=== PATIENT | male | born 1955 | race Hispanic/Latino ===

== ENCOUNTER 2018-09-28 13:35 | Observation (INO) | payer OTHER ==
--- OUTSIDE RECORDS SUMMARY | 2018-09-28 13:38 | XMS REPORT | Clinical Summary ---
:1955 Author Organization [facility] Address [address] [place] [address] Care Team Providers Name Role Phone Jaimie Primary Care Provider Allergies No Known Allergies Medications Medication Sig Dispensed Refills Start Date End Date Status clopidogrel (PLAVIX) 75 0 10/03/2016 Active mg tablet carvedilol (COREG) 6.25 0 10/03/2016 Active MG tablet atorvastatin (LIPITOR) 0 07/15/2016 Active 20 MG tablet fenofibric acid, 0 10/03/2016 Active choline, 45 mg capsule furosemide (LASIX) 40 0 10/03/2016 Active MG tablet lisinopril 0 10/03/2016 Active (PRINIVIL,ZESTRIL) 10 MG tablet aspirin 81 MG EC tablet Take 81 mg by 0 Active mouth daily. pantoprazole (PROTONIX) Take 1 tablet (40 30 tablet 0 10/22/2016 Active 40 MG tablet mg total) by mouth daily. Active Problems Problem Noted Date Angina pectoris 10/21/2016 Acute chest pain 10/19/2016 Social History Tobacco Use Types Packs/Day Years Used Date Never Smoker Alcohol Use Drinks/Week oz/Week Comments Yes rarely Sex Assigned at Date Recorded Not on file Job Start Date Occupation Industry Not on file Not on file Not on file Travel History Travel Start Travel End No recent travel history available. Last Filed Vital Signs Not on file Plan of Treatment Not on file Results Not on fileafter 09/27/2017 Insurance Payer Benefit Plan / Group Subscriber ID Type Phone Address [employer] - MEDICARE MGD HU[employer] MEDICARE ADV xxxxxxxxx Maps Contracted CARE Advance Directives For more information, please contact:[address] [phone] Code Status Date Activated Date Inactivated Comments Full Code 10/19/2016 11:10 PM 10/22/2016 2:23 PM This code status was determined by: Patient
--- OUTSIDE RECORDS SUMMARY | 2018-09-28 13:38 | XMS REPORT ---
:1955 Author Organization [facility] Address [address] [place] [address] Care Team Providers Name Role Phone HIRAM UDRHAM Unavailable Unavailable Problems This patient has no known problems. Allergies, Adverse Reactions, Alerts This patient has no known allergies or adverse reactions. Medications This patient has no known medications. Results Test Description Test Time Test Comments Text Results Atomic Results Result Comments POCT-GLUCOSE METER 2016-10-22 17:02:00 Test Item Value Reference Range Comments POC-GLUCOSE METER (BEAKER) (test 83 mg/dL 70-110 TESTED AT [facility] [address] [facility] dzor=[id number]) [facility] [address] COMPREHENSIVE METABOLIC [id number] 05:27:00 Test Item Value Reference Range Comments TOTAL PROTEIN (BEAKER) 6.6 gm/dL 6.0-8.5 (test txnc=579) ALBUMIN (BEAKER) (test 3.7 g/dL 3.5-5.0 mwsn=6497) ALKALINE PHOSPHATASE 68 U/L 30-115 (BEAKER) (test xfqo=248) BILIRUBIN TOTAL (BEAKER) 0.6 mg/dL 0.1-1.3 (test auai=765) SODIUM (BEAKER) (test 139 meq/L 135-148 pmcs=129) POTASSIUM (BEAKER) (test 3.9 meq/L 3.5-5.5 vltb=010) CHLORIDE (BEAKER) (test 109 meq/L 98-106 xmxe=956) CO2 (BEAKER) (test 21 meq/L 20-31 tkyy=994) BLOOD UREA NITROGEN 18 mg/dL 10-26 (BEAKER) (test hvrt=948) CREATININE (BEAKER) (test 0.92 mg/dL 0.50-1.20 duqz=663) GLUCOSE RANDOM (BEAKER) 122 mg/dL 70-110 (test klpg=544) CALCIUM (BEAKER) (test 8.9 mg/dL 8.5-10.5 awnv=475) AST (SGOT) (BEAKER) (test 24 U/L 5-40 ewrn=957) ALT (SGPT) (BEAKER) (test 22 U/L 6-50 bdlk=888) EGFR (BEAKER) (test 84 mL/min/1.73 sq m ESTIMATED GFR IS NOT mfje=2347) ACCURATE CREATININE CLEARANCE IN PREDICTING GLOMERULAR FILTRATION RATE. ESTIMATED GFR IS NOT APPLICABLE FOR DIALYSIS PATIENTS. CBC W/PLT COUNT & AUTO [id number] 05:00:00 Test Item Value Reference Range Comments WHITE BLOOD CELL COUNT (BEAKER) (test vvre=623) 5.7 K/ L 4.0-10.0 RED BLOOD CELL COUNT (BEAKER) (test xdil=496) 5.10 M/ L 4.20-5.80 HEMOGLOBIN (BEAKER) (test grdy=869) 15.0 GM/DL 13.0-16.8 HEMATOCRIT (BEAKER) (test ilzk=111) 44.3 % 40.0-50.0 MEAN CORPUSCULAR VOLUME (BEAKER) (test nmns=156) 86.9 fL 82.0-98.0 MEAN CORPUSCULAR HEMOGLOBIN (BEAKER) (test 29.4 pg 27.0-33.0 oyzs=723) MEAN CORPUSCULAR HEMOGLOBIN CONC (BEAKER) (test 33.9 GM/DL 32.0-36.0 aewp=364) RED CELL DISTRIBUTION WIDTH (BEAKER) (test 14.7 % 12.0-15.0 skto=476) PLATELET COUNT (BEAKER) (test fuhl=738) 167 K/CU MM 150-430 MEAN PLATELET VOLUME (BEAKER) (test ssgt=728) 9.7 fL 6.5-10.5 NUCLEATED RED BLOOD CELLS (BEAKER) (test 0 /100 WBC 0-0 ixqg=264) NEUTROPHILS RELATIVE PERCENT (BEAKER) (test 68 % vkjr=620) LYMPHOCYTES RELATIVE PERCENT (BEAKER) (test 20 % fyby=808) MONOCYTES RELATIVE PERCENT (BEAKER) (test 9 % hbvj=927) EOSINOPHILS RELATIVE PERCENT (BEAKER) (test 2 % rtxl=973) BASOPHILS RELATIVE PERCENT (BEAKER) (test 1 % ogbu=271) NEUTROPHILS ABSOLUTE COUNT (BEAKER) (test 3.90 K/ L 1.80-8.00 lxrq=211) LYMPHOCYTES ABSOLUTE COUNT (BEAKER) (test 1.10 K/ L 1.48-4.50 qftt=518) MONOCYTES ABSOLUTE COUNT (BEAKER) (test 0.50 K/ L 0.00-1.30 afzb=453) EOSINOPHILS ABSOLUTE COUNT (BEAKER) (test 0.10 K/ L 0.00-0.50 eycp=556) BASOPHILS ABSOLUTE COUNT (BEAKER) (test 0.00 K/ L 0.00-0.20 wuks=869) TSH/FREE T4 IF [id number] 05:52:00 Test Item Value Reference Range Comments THYROID STIMULATING HORMONE (BEAKER) (test 2.19 uIU/mL 0.35-5.50 aehc=362) CREATINE KINASE (CK), TOTAL AND [id number] 05:39:00 Test Item Value Reference Range Comments CREATINE KINASE TOTAL (BEAKER) (test sdua=631) 53 U/L 30-300 CREATINE KINASE-MB (BEAKER) (test rrem=137) 1.1 ng/mL 0.0-4.9 CREATINE KINASE-MB INDEX (BEAKER) (test dida=897) 2.1 % CK-MB Reference Range:<5 Normal5-10 Borderline>10 AbnormalLIPID [id number] 05:34:00 Test Item Value Reference Range Comments TRIGLYCERIDES (BEAKER) (test updg=787) 167 mg/dL CHOLESTEROL (BEAKER) (test fsxt=715) 142 mg/dL HDL CHOLESTEROL (BEAKER) (test gjwq=528) 28 mg/dL LDL CHOLESTEROL CALCULATED (BEAKER) (test 81 mg/dL ceua=170) Triglyceride Reference Range: Low Risk <150 Borderline 150- 199 High Risk 200-499 Very High Risk >=500Cholesterol Reference Range: Low Risk <200 Borderline 200-239 High Risk > 240HDL Cholesterol Reference Range: Low Risk >=60 High Risk <40LDL Cholesterol Reference Range: Optimal <100 Near Optimal 100-129 Borderline 130-159 High 160-189 Very High >=190COMPREHENSIVE METABOLIC [id number] 05:34:00 Test Item Value Reference Range Comments TOTAL PROTEIN (BEAKER) 7.0 gm/dL 6.0-8.5 (test fsuv=563) ALBUMIN (BEAKER) (test 4.0 g/dL 3.5-5.0 yxkj=0955) ALKALINE PHOSPHATASE 64 U/L 30-115 (BEAKER) (test bdkr=329) BILIRUBIN TOTAL (BEAKER) 0.8 mg/dL 0.1-1.3 (test yxcu=868) SODIUM (BEAKER) (test 138 meq/L 135-148 lqih=552) POTASSIUM (BEAKER) (test 3.9 meq/L 3.5-5.5 rkdx=274) CHLORIDE (BEAKER) (test 107 meq/L 98-106 koal=560) CO2 (BEAKER) (test 22 meq/L 20-31 rhiv=357) BLOOD UREA NITROGEN 17 mg/dL 10-26 (BEAKER) (test mydy=554) CREATININE (BEAKER) (test 0.91 mg/dL 0.50-1.20 cozj=636) GLUCOSE RANDOM (BEAKER) 103 mg/dL 70-110 (test mmtv=302) CALCIUM (BEAKER) (test 9.3 mg/dL 8.5-10.5 vzuf=799) AST (SGOT) (BEAKER) (test 24 U/L 5-40 vlje=219) ALT (SGPT) (BEAKER) (test 22 U/L 6-50 absa=981) EGFR (BEAKER) (test 85 mL/min/1.73 sq m ESTIMATED GFR IS NOT sgnk=7501) ACCURATE CREATININE CLEARANCE IN PREDICTING GLOMERULAR FILTRATION RATE. ESTIMATED GFR IS NOT APPLICABLE FOR DIALYSIS PATIENTS. CBC W/PLT COUNT & AUTO [id number] 05:09:00 Test Item Value Reference Range Comments WHITE BLOOD CELL COUNT (BEAKER) (test giyz=729) 5.7 K/ L 4.0-10.0 RED BLOOD CELL COUNT (BEAKER) (test nkuh=836) 5.27 M/ L 4.20-5.80 HEMOGLOBIN (BEAKER) (test tvxi=991) 15.3 GM/DL 13.0-16.8 HEMATOCRIT (BEAKER) (test ahhx=024) 46.3 % 40.0-50.0 MEAN CORPUSCULAR VOLUME (BEAKER) (test jrjb=676) 88.0 fL 82.0-98.0 MEAN CORPUSCULAR HEMOGLOBIN (BEAKER) (test 29.1 pg 27.0-33.0 ulgi=254) MEAN CORPUSCULAR HEMOGLOBIN CONC (BEAKER) (test 33.1 GM/DL 32.0-36.0 rlmj=501) RED CELL DISTRIBUTION WIDTH (BEAKER) (test 14.8 % 12.0-15.0 sths=741) PLATELET COUNT (BEAKER) (test hyaw=982) 171 K/CU MM 150-430 MEAN PLATELET VOLUME (BEAKER) (test zuuu=490) 9.6 fL 6.5-10.5 NUCLEATED RED BLOOD CELLS (BEAKER) (test 0 /100 WBC 0-0 eujq=732) NEUTROPHILS RELATIVE PERCENT (BEAKER) (test 62 % raul=363) LYMPHOCYTES RELATIVE PERCENT (BEAKER) (test 24 % oczk=701) MONOCYTES RELATIVE PERCENT (BEAKER) (test 10 % qkmm=025) EOSINOPHILS RELATIVE PERCENT (BEAKER) (test 3 % kyhu=132) BASOPHILS RELATIVE PERCENT (BEAKER) (test 1 % yrwa=111) NEUTROPHILS ABSOLUTE COUNT (BEAKER) (test 3.50 K/ L 1.80-8.00 ernc=553) LYMPHOCYTES ABSOLUTE COUNT (BEAKER) (test 1.40 K/ L 1.48-4.50 tpoy=499) MONOCYTES ABSOLUTE COUNT (BEAKER) (test 0.60 K/ L 0.00-1.30 fasg=076) EOSINOPHILS ABSOLUTE COUNT (BEAKER) (test 0.20 K/ L 0.00-0.50 ntgf=618) BASOPHILS ABSOLUTE COUNT (BEAKER) (test 0.10 K/ L 0.00-0.20 yhfd=625) CREATINE KINASE (CK), TOTAL AND [id number] 13:10:00 Test Item Value Reference Range Comments CREATINE KINASE TOTAL (BEAKER) (test spzp=174) 56 U/L 30-300 CREATINE KINASE-MB (BEAKER) (test dmgh=177) 1.1 ng/mL 0.0-4.9 CREATINE KINASE-MB INDEX (BEAKER) (test ngwf=830) 2.0 % CK-MB Reference Range:<5 Normal5-10 Borderline>10 AbnormalTROPONIN [id number] 13:10:00 Test Item Value Reference Range Comments TROPONIN I (BEAKER) (test mbus=008) 0.01 ng/mL 0.00-0.15 Troponin I (TnI) levels must be interpreted in the context of the presenting symptoms and the clinical findings. Elevated TnI levels indicate myocardial damage, but are not specific for ischemic heart disease. Elevated TnI levels are seen in patients with other cardiac conditions (including myocarditis and congestive heart failure), and slight TnI elevations occur in patients with other conditions, including sepsis, renal failure, acidosis, acute neurological disease, and persistent tachyarrhythmia.CREATINE KINASE (CK), TOTAL AND [id number] 05:13:00 Test Item Value Reference Range Comments CREATINE KINASE TOTAL (BEAKER) (test hsjj=655) 51 U/L 30-300 CREATINE KINASE-MB (BEAKER) (test fthm=919) 0.9 ng/mL 0.0-4.9 CREATINE KINASE-MB INDEX (BEAKER) (test nifw=750) 1.8 % CK-MB Reference Range:<5 Normal5-10 Borderline>10 AbnormalTROPONIN [id number] 05:13:00 Test Item Value Reference Range Comments TROPONIN I (BEAKER) (test wcax=468) 0.01 ng/mL 0.00-0.15 Troponin I (TnI) levels must be interpreted in the context of the presenting symptoms and the clinical findings. Elevated TnI levels indicate myocardial damage, but are not specific for ischemic heart disease. Elevated TnI levels are seen in patients with other cardiac conditions (including myocarditis and congestive heart failure), and slight TnI elevations occur in patients with other conditions, including sepsis, renal failure, acidosis, acute neurological disease, and persistent tachyarrhythmia.CREATINE KINASE (CK), TOTAL AND [id number] 20:46:00 Test Item Value Reference Range Comments CREATINE KINASE TOTAL (BEAKER) (test kvno=012) 64 U/L 30-300 CREATINE KINASE-MB (BEAKER) (test jhxq=954) 1.0 ng/mL 0.0-4.9 CREATINE KINASE-MB INDEX (BEAKER) (test xbku=826) 1.6 % CK-MB Reference Range:<5 Normal5-10 Borderline>10 AbnormalTROPONIN [id number] 20:46:00 Test Item Value Reference Range Comments TROPONIN I (BEAKER) (test bqyp=580) < ng/mL 0.00-0.15 Troponin I (TnI) levels must be interpreted in the context of the presenting symptoms and the clinical findings. Elevated TnI levels indicate myocardial damage, but are not specific for ischemic heart disease. Elevated TnI levels are seen in patients with other cardiac conditions (including myocarditis and congestive heart failure), and slight TnI elevations occur in patients with other conditions, including sepsis, renal failure, acidosis, acute neurological disease, and persistent tachyarrhythmia.B-TYPE NATRIURETIC FACTOR (BNP) 20:43:00 Test Item Value Reference Range Comments B-TYPE NATRIURETIC PEPTIDE (BEAKER) (test iasn=459) 19 pg/mL 0-100 [id number] 20:35:00 Test Item Value Reference Range Comments LIPASE (BEAKER) (test vxjt=230) 22 U/L 8-78 COMPREHENSIVE METABOLIC [id number] 20:35:00 Test Item Value Reference Range Comments TOTAL PROTEIN (BEAKER) 7.5 gm/dL 6.0-8.5 Specimen slightly (test rqlm=857) hemolyzed ALBUMIN (BEAKER) (test 4.2 g/dL 3.5-5.0 Specimen slightly asry=3287) hemolyzed ALKALINE PHOSPHATASE 85 U/L 30-115 (BEAKER) (test lbuj=210) BILIRUBIN TOTAL (BEAKER) 0.8 mg/dL 0.1-1.3 Specimen slightly (test qjjk=889) hemolyzed SODIUM (BEAKER) (test 135 meq/L 135-148 hfev=774) POTASSIUM (BEAKER) (test 4.4 meq/L 3.5-5.5 Specimen slightly kjvq=776) hemolyzed CHLORIDE (BEAKER) (test 104 meq/L 98-106 vcuv=792) CO2 (BEAKER) (test 20 meq/L 20-31 bcvc=609) BLOOD UREA NITROGEN 21 mg/dL 10-26 (BEAKER) (test whne=824) CREATININE (BEAKER) (test 0.91 mg/dL 0.50-1.20 Specimen slightly vxgp=479) hemolyzed GLUCOSE RANDOM (BEAKER) 89 mg/dL 70-110 (test nakj=219) CALCIUM (BEAKER) (test 9.7 mg/dL 8.5-10.5 ovkc=696) AST (SGOT) (BEAKER) (test 33 U/L 5-40 Specimen slightly bcep=923) hemolyzed ALT (SGPT) (BEAKER) (test 25 U/L 6-50 Specimen slightly svvp=458) hemolyzed EGFR (BEAKER) (test 85 mL/min/1.73 sq m ESTIMATED GFR IS NOT fvor=5923) ACCURATE CREATININE CLEARANCE IN PREDICTING GLOMERULAR FILTRATION RATE. ESTIMATED GFR IS NOT APPLICABLE FOR DIALYSIS PATIENTS. CBC W/PLT COUNT & AUTO [id number] 20:08:00 Test Item Value Reference Range Comments WHITE BLOOD CELL COUNT (BEAKER) (test luti=657) 5.7 K/ L 4.0-10.0 RED BLOOD CELL COUNT (BEAKER) (test krtc=563) 5.43 M/ L 4.20-5.80 HEMOGLOBIN (BEAKER) (test hgxy=563) 16.1 GM/DL 13.0-16.8 HEMATOCRIT (BEAKER) (test zpid=585) 47.3 % 40.0-50.0 MEAN CORPUSCULAR VOLUME (BEAKER) (test twse=444) 87.2 fL 82.0-98.0 MEAN CORPUSCULAR HEMOGLOBIN (BEAKER) (test 29.6 pg 27.0-33.0 nzlk=926) MEAN CORPUSCULAR HEMOGLOBIN CONC (BEAKER) (test 34.0 GM/DL 32.0-36.0 fulh=566) RED CELL DISTRIBUTION WIDTH (BEAKER) (test 14.6 % 12.0-15.0 rrny=175) PLATELET COUNT (BEAKER) (test qugr=694) 138 K/CU MM 150-430 MEAN PLATELET VOLUME (BEAKER) (test lvpf=189) 9.7 fL 6.5-10.5 NUCLEATED RED BLOOD CELLS (BEAKER) (test 0 /100 WBC 0-0 gjfi=155) NEUTROPHILS RELATIVE PERCENT (BEAKER) (test 56 % qesi=835) LYMPHOCYTES RELATIVE PERCENT (BEAKER) (test 28 % iidn=003) MONOCYTES RELATIVE PERCENT (BEAKER) (test 12 % lwoh=786) EOSINOPHILS RELATIVE PERCENT (BEAKER) (test 4 % yior=587) BASOPHILS RELATIVE PERCENT (BEAKER) (test 1 % achy=216) NEUTROPHILS ABSOLUTE COUNT (BEAKER) (test 3.20 K/ L 1.80-8.00 cyxi=572) LYMPHOCYTES ABSOLUTE COUNT (BEAKER) (test 1.60 K/ L 1.48-4.50 gbao=213) MONOCYTES ABSOLUTE COUNT (BEAKER) (test 0.70 K/ L 0.00-1.30 fkou=675) EOSINOPHILS ABSOLUTE COUNT (BEAKER) (test 0.20 K/ L 0.00-0.50 bnjp=609) BASOPHILS ABSOLUTE COUNT (BEAKER) (test 0.00 K/ L 0.00-0.20 cris=516)
[2018-09-28] MEDS ORDERED: ASPIRIN 81 MG CHEWABLE TABLET ONE (14:16)
[2018-09-28] MEDS ORDERED: ENOXAPARIN 100 MG/ML SYR SQ ONE (14:17)
[2018-09-28 14:19] LABS: Absolute Lymphocytes (CBC) 1.8 K/uL (0.7-4.9); Absolute Monocytes 0.4 K/uL (0.1-1.3); Absolute Neutrophil 3.8 K/uL (1.8-8.0); Basophils % 0.9 % (0-1.3); Eosinophils % 3.2 % (0-4.4); Hematocrit 46.8 % (39.6-49.0); Lymphocytes % 28.7 % (15.3-44.8); MPV 9.4 fL (7.6-11.3); Monocytes % 6.4 % (3.3-12.3)
--- NOTE | 2018-09-28 14:23 | RAD REPORT ---
EXAM DESCRIPTION: RAD - Chest Single View - 09/28/2018 2:15 pm CLINICAL HISTORY: CHEST PAIN Chest pain. COMPARISON: No comparisons FINDINGS: Portable technique limits examination quality. Mild interstitial pulmonary edema is seen. The heart is moderately enlarged in size with a dual lead pacer device present. No displaced fractures. IMPRESSION: Mild CHF versus volume overload pattern.
[2018-09-28 14:38] LABS: ALT/SGPT 45 U/L (12-78); AST/SGOT 32 U/L (15-37); Albumin 3.9 g/dL (3.4-5.0); Alkaline Phosphatase 108 U/L (45-117); BUN Blood Urea Nitrogen 15 mg/dL (7-18); Bicarbonate 25 mmol/L (21-32); Bilirubin Direct 0.3 mg/dL (0-0.2); Bilirubin Total 1.1 mg/dL (0.2-1.0); Glucose Level 148 mg/dL (74-106); Magnesium 2.1 mg/dL (1.8-2.4); NT PRO-BNP 209 pg/mL (<125); Potassium 3.9 mmol/L (3.5-5.1); Protein, Total 7.7 g/dL (6.4-8.2); Sodium Level 139 mmol/L (136-145); Troponin (Emerg Dept Use Only) < 0.02 ng/mL (0.0-0.045)
[2018-09-28 14:43] LABS: Protime INR 1.08
--- NOTE | 2018-09-28 14:49 | EDPHYS ---
Physician Documentation [facility] Name: Prasad García Age: 63 yrs Sex: Male : 1955 Arrival Date: 09/28/2018 Time: 13:36 Bed 18 Private MD: ED Physician Brian Anaya HPI: 09/28 14:44 This 63 yrs old Male presents to ER via Ambulatory with complaints of Chest aliya Pain. 14:44 The patient or guardian reports chest pain that is located primarily in the substernal aliya area. Onset: this morning. The pain does not radiate. Associated signs and symptoms: Pertinent positives: shortness of breath. The chest pain is described as a heaviness. Duration: The patient or guardian reports a single episode, that is now resolved. Modifying factors: The symptoms are alleviated by NTG, X1. the symptoms are aggravated by nothing. Severity of pain: At its worst the pain was mild moderate in the emergency department the pain has resolved and did so just prior to arrival. The patient has experienced similar episodes in the past, several times. Historical: - Allergies: 13:40 No Known Allergies; hb - Home Meds: 13:42 lisinopril 10 mg Oral tab 1 tab once daily [Active]; clopidogrel 75 mg oral tab 1 tab hb once daily [Active]; furosemide 40 mg Oral tab 1 tab once daily [Active]; Potassium Chloride Oral [Active]; carvedilol 6.25 mg oral tab 1 tab 2 times per day [Active]; atorvastatin 40 mg oral tab 1 tab once daily [Active]; aspirin 81 mg Oral chew 1 tab once daily [Active]; - PMHx: 13:40 CHF; Migraines; Pacemaker; hb - PSHx: 13:40 heart stents x 2; hb - Immunization history:: Adult Immunizations up to date. - Social history:: Smoking status: Patient/guardian denies using tobacco. - Ebola Screening: : No symptoms or risks identified at this time. - Family history:: not pertinent. ROS: 14:44 Constitutional: Negative for fever, chills, and weight loss, Eyes: Negative for injury, aliya pain, redness, and discharge, ENT: Negative for injury, pain, and discharge, Neck: Negative for injury, pain, and swelling, Abdomen/GI: Negative for abdominal pain, nausea, vomiting, diarrhea, and constipation, Back: Negative for injury and pain, : Negative for injury, bleeding, discharge, and swelling, MS/Extremity: Negative for injury and deformity, Skin: Negative for injury, rash, and discoloration, Neuro: Negative for headache, weakness, numbness, tingling, and seizure, Psych: Negative for depression, anxiety, suicide ideation, homicidal ideation, and hallucinations, Allergy/Immunology: Negative for hives, rash, and allergies, Endocrine: Negative for neck swelling, polydipsia, polyuria, polyphagia, and marked weight changes, Hematologic/Lymphatic: Negative for swollen nodes, abnormal bleeding, and unusual bruising. 14:44 Cardiovascular: Positive for chest pain. 14:44 Respiratory: Positive for dyspnea on exertion, shortness of breath, at rest. Exam: 14:44 Constitutional: This is a well developed, well nourished patient who is awake, alert, aliya and in no acute distress. Head/Face: Normocephalic, atraumatic. Eyes: Pupils equal round and reactive to light, extra-ocular motions intact. Lids and lashes normal. Conjunctiva and sclera are non-icteric and not injected. Cornea within normal limits. Periorbital areas with no swelling, redness, or edema. ENT: Nares patent. No nasal discharge, no septal abnormalities noted. Tympanic membranes are normal and external auditory canals are clear. Oropharynx with no redness, swelling, or masses, exudates, or evidence of obstruction, uvula midline. Mucous membranes moist. Neck: Trachea midline, no thyromegaly or masses palpated, and no cervical lymphadenopathy. Supple, full range of motion without nuchal rigidity, or vertebral point tenderness. No Meningismus. Chest/axilla: Normal chest wall appearance and motion. Nontender with no deformity. No lesions are appreciated. Cardiovascular: Regular rate and rhythm with a normal S1 and S2. No gallops, murmurs, or rubs. Normal PMI, no JVD. No pulse deficits. Respiratory: Lungs have equal breath sounds bilaterally, clear to auscultation and percussion. No rales, rhonchi or wheezes noted. No increased work of breathing, no retractions or nasal flaring. Abdomen/GI: Soft, non-tender, with normal bowel sounds. No distension or tympany. No guarding or rebound. No evidence of tenderness throughout. Back: No spinal tenderness. No costovertebral tenderness. Full range of motion. Male : Normal genitalia with no discharge or lesions. Skin: Warm, dry with normal turgor. Normal color with no rashes, no lesions, and no evidence of cellulitis. MS/ Extremity: Pulses equal, no cyanosis. Neurovascular intact. Full, normal range of motion. Neuro: Awake and alert, GCS 15, oriented to person, place, time, and situation. Cranial nerves II-XII grossly intact. Motor strength 5/5 in all extremities. Sensory grossly intact. Cerebellar exam normal. Normal gait. Psych: Awake, alert, with orientation to person, place and time. Behavior, mood, and affect are within normal limits. 14:44 Musculoskeletal/extremity: DVT Exam: No signs of deep vein thrombosis. no pain, no aliya swelling, no tenderness, negative Homans' sign noted on exam, no appreciated bluish discoloration, no erythema, no increased warmth. Vital Signs: 13:40 BP 147 / 79; Pulse 76; Resp 18; Temp 97.5; Pulse Ox 95% on R/A; Pain 4/10; hb 14:01 Weight 116.57 kg (R); tw2 14:37 BP 106 / 66; Pulse 73; Resp 16; Pulse Ox 96% on 2 lpm NC; tw2 15:33 BP 111 / 62; Pulse 79; Resp 14; Pulse Ox 97% on 2 lpm NC; tw2 16:24 BP 130 / 76; Pulse 76; Resp 22; Pulse Ox 96% on 2 lpm NC; tw2 MDM: 13:52 Patient medically screened. aliya 09/28 13:50 Order name: Basic Metabolic Panel; Complete Time: 14:49 bd 09/28 13:50 Order name: CBC with Diff; Complete Time: 14:34 bd 09/28 13:50 Order name: LFT's; Complete Time: 14:49 bd 09/28 13:50 Order name: Magnesium; Complete Time: 14:49 bd 09/28 13:50 Order name: NT PRO-BNP; Complete Time: 14:49 09/28 13:50 Order name: PT-INR; Complete Time: 14:49 09/28 13:50 Order name: Troponin (emerg Dept Use Only); Complete Time: 14:49 bd 09/28 13:50 Order name: XRAY Chest (1 view); Complete Time: 14:34 09/28 13:58 Order name: Lipase [facility] 09/28 14:00 Order name: Urine Culture [facility] 09/28 14:58 Order name: Urine Dipstick--Ancillary (enter results) 09/28 13:47 Order name: EKG; Complete Time: 13:48 09/28 13:47 Order name: EKG - Nurse/Tech; Complete Time: 14:03 09/28 13:50 Order name: EKG; Complete Time: 13:52 09/28 13:50 Order name: Cardiac monitoring; Complete Time: 14:00 09/28 13:50 Order name: EKG - Nurse/Tech; Complete Time: 14:00 09/28 13:50 Order name: IV Saline Lock; Complete Time: 14:00 09/28 13:50 Order name: Labs collected and sent; Complete Time: 14:00 09/28 13:50 Order name: O2 Per Protocol; Complete Time: 14:00 09/28 13:50 Order name: O2 Sat Monitoring; Complete Time: 14:00 09/28 14:00 Order name: Urine Dipstick-Ancillary (obtain specimen); Complete Time: 15:27 [facility] Administered Medications: 14:07 Drug: Lovenox 1 mg/kg {Note: [address] Anaya.} Route: Sub-Q; Site: right lower tw2 abdomen; 14:56 Follow up: Response: No adverse reaction tw2 14:09 Drug: Aspirin 81 mg Route: PO; tw2 14:56 Follow up: Response: No adverse reaction tw2 14:50 Drug: Lasix 40 mg Route: IVP; Site: right forearm; tw2 15:10 Follow up: Response: No adverse reaction tw2 Disposition: 09/28/18 14:48 Hospitalization ordered by Hernandez Francois for Observation. Preliminary diagnosis are Dyspnea, Unspecified combined systolic (congestive) and diastolic (congestive) heart failure, Chest pain, unspecified, Obesity, unspecified. - Bed requested for Telemetry/MedSurg (observation). - Status is Observation. tw2 - Condition is Fair. - Problem is new. - Symptoms have improved. UTI on Admission? No Signatures: Dispatcher [employer] EDMS Aurelia Mustafa Diana, RN RN Brian Jamil MD MD cha Smirch, Shelby, RN RN Rain Riley, RIGO SIERRA Alsyon Alford RN RN tw2 Corrections: (The following items were deleted from the chart) 15:03 14:39 EC Echo M-Mode 2D Only+ECHO.RAD.BRZ ordered. EDNY EDMS 15:49 14:48 Hospitalization Ordered by Hernandez Francois DO for Observation. Preliminary dw diagnosis is Dyspnea; Unspecified combined systolic (congestive) and diastolic (congestive) heart failure; Chest pain, unspecified; Obesity, unspecified. Bed requested for Telemetry/MedSurg (observation). Status is Observation. Condition is Fair. Problem is new. Symptoms have improved. UTI on Admission? No. [facility] 16:43 15:49 09/28/2018 14:48 Hospitalization Ordered by Hernandez Francois DO for Observation. tw2 Preliminary diagnosis is Dyspnea; Unspecified combined systolic (congestive) and diastolic (congestive) heart failure; Chest pain, unspecified; Obesity, unspecified. Bed requested for Telemetry/MedSurg (observation). Status is Observation. Condition is Fair. Problem is new. Symptoms have improved. UTI on Admission? No. dw
--- NOTE | 2018-09-28 14:49 | ER ---
Nurse's Notes [facility] Name: Prasad García Age: 63 yrs Sex: Male : 1955 Arrival Date: 09/28/2018 Time: 13:36 Bed 18 Private MD: Diagnosis: Dyspnea;Unspecified combined systolic (congestive) and diastolic (congestive) heart failure;Chest pain, unspecified;Obesity, unspecified Presentation: 09/28 13:38 Presenting complaint: Substernal chest pain that radiates to left upper chest, pain is hb described as pressure, temporarily relieved by nitro x 2. Also c/o SOB and nausea. Transition of care: patient was not received from another setting of care. Onset of symptoms was September 28, 2018. Risk Assessment: Do you want to hurt yourself or someone else? Patient reports no desire to harm self or others. Initial Sepsis Screen: Does the patient meet any 2 criteria?. Care prior to arrival: Medication(s) given: Nitroglycerin, 0.4 mg SL x 2. 13:38 Method Of Arrival: Ambulatory hb 13:38 Acuity: PADMA 3 hb 14:03 Initial Sepsis Screen: Does the patient have a suspected source of infection? No. tw2 Patient's initial sepsis screen is negative. Historical: - Allergies: 13:40 No Known Allergies; hb - Home Meds: 13:42 lisinopril 10 mg Oral tab 1 tab once daily [Active]; clopidogrel 75 mg oral tab 1 tab hb once daily [Active]; furosemide 40 mg Oral tab 1 tab once daily [Active]; Potassium Chloride Oral [Active]; carvedilol 6.25 mg oral tab 1 tab 2 times per day [Active]; atorvastatin 40 mg oral tab 1 tab once daily [Active]; aspirin 81 mg Oral chew 1 tab once daily [Active]; - PMHx: 13:40 CHF; Migraines; Pacemaker; hb - PSHx: 13:40 heart stents x 2; hb - Immunization history:: Adult Immunizations up to date. - Social history:: Smoking status: Patient/guardian denies using tobacco. - Ebola Screening: : No symptoms or risks identified at this time. - Family history:: not pertinent. Screenin:59 Abuse screen: Denies threats or abuse. Nutritional screening: No deficits noted. tw2 Tuberculosis screening: No symptoms or risk factors identified. Fall Risk None identified. Assessment: 13:57 General: Appears in no apparent distress. obese, Behavior is calm, cooperative, tw2 appropriate for age. Pain: Complains of pain in chest Pain radiates to back Pain began 4 hours ago. Neuro: Level of Consciousness is awake, alert, obeys commands, Oriented to person, place, time, situation. Cardiovascular: Reports chest pain, shortness of breath, Heart tones S1 S2 Patient's skin is warm and dry. Respiratory: Airway is patent Respiratory effort is even, labored, pt is pausing between words to breathe, placed on o2 via 2L nc at this time. Respiratory pattern is regular, symmetrical, Breath sounds are clear bilaterally. GI: Abdomen is round non-distended, obese, Bowel sounds present X 4 quads. : No signs and/or symptoms were reported regarding the genitourinary system. EENT: No signs and/or symptoms were reported regarding the EENT system. Derm: No signs and/or symptoms reported regarding the dermatologic system. Musculoskeletal: Range of motion: intact in all extremities. 14:37 Reassessment: Patient appears in no apparent distress at this time. No changes from tw2 previously documented assessment. Patient and/or family updated on plan of care and expected duration. Pain level reassessed. Patient is alert, oriented x 3, equal unlabored respirations, skin warm/dry/pink. 15:34 Reassessment: Patient appears in no apparent distress at this time. No changes from tw2 previously documented assessment. Patient and/or family updated on plan of care and expected duration. Pain level reassessed. Patient is alert, oriented x 3, equal unlabored respirations, skin warm/dry/pink. 16:25 Reassessment: Patient appears in no apparent distress at this time. No changes from tw2 previously documented assessment. Patient and/or family updated on plan of care and expected duration. Pain level reassessed. Patient is alert, oriented x 3, equal unlabored respirations, skin warm/dry/pink. Vital Signs: 13:40 BP 147 / 79; Pulse 76; Resp 18; Temp 97.5; Pulse Ox 95% on R/A; Pain 4/10; hb 14:01 Weight 116.57 kg (R); tw2 14:37 BP 106 / 66; Pulse 73; Resp 16; Pulse Ox 96% on 2 lpm NC; tw2 15:33 BP 111 / 62; Pulse 79; Resp 14; Pulse Ox 97% on 2 lpm NC; tw2 16:24 BP 130 / 76; Pulse 76; Resp 22; Pulse Ox 96% on 2 lpm NC; tw2 ED Course: 13:36 Patient arrived in ED. rg4 13:39 Triage completed. hb 13:40 Arm band placed on. hb 13:52 Brian Anaya MD is Attending Physician. aliya 13:56 Alyson Alford, RN is Primary Nurse. tw2 13:57 Placed in gown. Bed in low position. Adult w/ patient. clinical research monitor on. Pulse ox on. tw2 NIBP on. 13:57 Inserted saline lock: 22 gauge in right forearm, using aseptic technique. Blood tw2 collected. Patient maintains SpO2 saturation greater than 95% on room air. 14:18 XRAY Chest (1 view) In Process Unspecified. EDMS 14:28 EKG done, by helicopter technician. reviewed by Brian Anaya MD. 3 14:46 Hernandez Francois DO is Hospitalizing Provider[facility] 16:25 No provider procedures requiring assistance completed. Patient admitted, IV remains in tw2 place. Administered Medications: 14:07 Drug: Lovenox 1 mg/kg {Note: [address] Anaya.} Route: Sub-Q; Site: right lower tw2 abdomen; 14:56 Follow up: Response: No adverse reaction tw2 14:09 Drug: Aspirin 81 mg Route: PO; tw2 14:56 Follow up: Response: No adverse reaction tw2 14:50 Drug: Lasix 40 mg Route: IVP; Site: right forearm; tw2 15:10 Follow up: Response: No adverse reaction tw2 Output: 16:00 Urine: 1100ml (Voided); Total: 1100ml. tw2 Outcome: 14:48 Decision to Hospitalize by Provider. aliya 16:25 Admitted to Med/surg accompanied by tech, via wheelchair, room 408, with oxygen, with tw2 chart, Report called to RIGO Cassidy 16:25 Condition: stable 16:25 Instructed on the need for admit. 16:43 Patient left the ED. tw2 Signatures: Dispatcher [employer] EDWY Brian Anaay MD MD [facility] Rain Riley RN RN Alyson Alford RN RN tw2 Liilane Mccauley rg4 Citlalli Rocha sm3
[2018-09-28] MEDS ORDERED: FUROSEMIDE 40 MG/4 ML VIAL ONE (14:50)
[2018-09-28 15:14] LABS: Urine Blood NEGATIVE (NEG); Urine Glucose NEGATIVE (NEG); Urine Protein NEGATIVE (NEG); Urine Specific Gravity 1.015 (1.005-1.030); Urine pH 6.5 (5.0-7.0)
--- NOTE | 2018-09-28 16:08 | P.HP ---
Certification for Inpatient Patient admitted to: Observation With expected LOS: <2 Midnights Patient will require the following post-hospital care: None Practitioner: I am a practitioner with admitting privileges, knowledge of patient current condition, hospital course, and medical plan of care. Services: Services provided to patient in accordance with Admission requirements found in Title 42 Section 412.3 of the Code of Federal Regulations Patient History Date of Service: 09/28/18 Primary Care Provider: [place], [place] (Cardiology-Dr. Ness) Reason for admission: Chest pain, shortness of breath History of Present Illness: 63-year-old male presented to the emergency room with chest pain and shortness of breath. Patient reports increasing chest pain to the center region. It radiates to the left side. He reports some nausea but no vomiting. It is associated with some shortness of breath. Mild edema to the lower extremities noted. Patient last saw Cardiology in the [place], [place] in August. He had a echocardiogram and stress test at that time. He reports both within normal range. Patient continued to have chest pain. Patient came in for further evaluation. In the ER a EKG showed no significant ST changes. Troponin less than 0.02. White count 6.2, hemoglobin 16. Sodium 139, potassium 3.9, creatinine within normal range. Glucose 148. BMP at 209. Chest x-ray showed mild CHF. Patient admitted for treatment. I saw the patient the ER, patient reported some improvement with IV Lasix given in the emergency room. Patient reports he is not on a fluid restriction. Patient reports history of pacemaker placement, CHF, CAD, hypertension and hyperlipidemia. Patient reports history of cardiac stents placed about 2 years ago. Home medications list reviewed: Yes - Past Medical/Surgical History Diabetic: No -: Pacemaker -: CHF -: CAD with history of cardiac stents -: Hypertension -: Hyperlipidemia -: Obesity -: Pacemaker placement -: Cardiac stents Psychosocial/ Personal History: Patient is . He has 4 children. He is currently disabled. - Family History Brother -: Heart disease - Social History Smoking Status: Never smoker Alcohol use: Yes CD- Drugs: No Caffeine use: Yes Place of Residence: Home Review of Systems General: As per HPI Eyes: Unremarkable ENT: Unremarkable Respiratory: Shortness of Breath, As per HPI Cardiovascular: Chest Pain, Edema, As per HPI Gastrointestinal: Nausea, As per HPI Genitourinary: Unremarkable Musculoskeletal: Pedal edema, As per HPI Integumentary: Unremarkable Neurological: Unremarkable Lymphatics: Unremarkable Physical Examination - Physical Exam General: Alert, In no apparent distress, Oriented x3, Cooperative HEENT: Atraumatic, Normocephalic, PERRLA, Mucous membr. moist/pink Neck: Supple Respiratory: Diminished (Slightly diminished to the low bases.) Cardiovascular: Normal pulses, Regular rate/rhythm Gastrointestinal: Normal bowel sounds, Soft and benign, Non-distended, No tenderness, No masses, No rebound, No guarding Musculoskeletal: No contractures, No erythema, No tenderness, No warmth Integumentary: No tenderness/swelling, No erythema, No warmth, No cyanosis Neurological: Normal speech, Normal strength at 5/5 x4 extr, Normal tone, Normal affect - Studies Laboratory Data (last 24 hrs) 09/28/18 13:50: Lipase 170 09/28/18 13:50: PT 12.7 H, INR 1.08 09/28/18 13:50: WBC 6.2, Hgb 16.0, Hct 46.8, Plt Count 221 09/28/18 13:50: Sodium 139, Potassium 3.9, BUN 15, Creatinine 0.84, Glucose 148 H, Magnesium 2.1, Total Bilirubin 1.1 H, AST 32, ALT 45, Alkaline Phosphatase 108 Assessment and Plan - Plan Impression: Chest pain with shortness of breath likely related to acute on chronic systolic CHF CAD with prior cardiac stents Hypertension Hyperlipidemia History of pacemaker placement Obesity Alcohol use Suspect underlying obstructive sleep apnea Plan: Chest pain with shortness of breath likely related to acute on chronic systolic CHF: Patient will be admitted for further evaluation. Will continue with IV Lasix. Will teach on 1500 cc per day fluid restriction and low-salt diet. 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 Cardiology consulted to further evaluate. Await further recommendations. CAD with prior cardiac stents: Will monitor cardiac enzymes and telemetry. Continue with home medication. Including aspirin. Hypertension: Restart home medication of lisinopril and carvedilol. Hyperlipidemia: Restart home medication of Lipitor. History of pacemaker placement: Will monitor closely. Pacemaker recently evaluated by Cardiology Obesity: Will calculate BMI. Will address lifestyle modification education. Alcohol use: Will address lifestyle modification education. Suspect underlying obstructive sleep apnea: Patient should have sleep study done as an outpatient to further evaluate. Discharge Plan: Home Plan to discharge in: 24 Hours - Advance Directives Does patient have a Living Will: No Does patient have a Durable POA for Healthcare: No - Code Status/Comfort Care Code Status Assessed: Yes (Patient is full code.) Time Spent Managing Pts Care (In Minutes): 55
[2018-09-28] MEDS ORDERED: NITROGLYCERIN 0.4 MG/TAB SL PRN (16:50)
[2018-09-28] MEDS ORDERED: ONDANSETRON 4 MG/2 ML VIAL IV PRN (16:50)
[2018-09-28] MEDS ORDERED: ACETAMINOPHEN 500 MG TAB PO PRN (16:50)
[2018-09-28] MEDS ORDERED: MORPHINE 2 MG/ML SYR IV PRN (16:50)
[2018-09-28] MEDS ORDERED: FUROSEMIDE 20 MG/ 2ML VIAL IV SCH (17:00)
[2018-09-28] MEDS ORDERED: CLOPIDOGREL 75 MG TABLET PO SCH (17:00)
[2018-09-28] MEDS ORDERED: POTASSIUM CL SA 10 MEQ TAB PO ONE ×2 (17:05→18:00)
[2018-09-28 17:50] LABS: CKMB Creatine Kinase MB 1.2 ng/mL (0.3-3.6); Creatine Phosphokinase 64 U/L (39-308); Troponin I < 0.02 ng/mL (0.0-0.045)
[2018-09-28 17:57] LABS: Urine Appearance CLEAR; Urine Bilirubin NEGATIVE (NEG); Urine Blood NEGATIVE (NEG); Urine Color YELLOW; Urine Glucose NEGATIVE (NEG); Urine Protein NEGATIVE (NEG)
[2018-09-28 18:00] LABS: Urine Microscopic Reflex NO UMIC
--- NOTE | 2018-09-28 19:04 | EKG ---
Test Date: 2018-09-28 Test Time: 13:49:39 Marketing Assistant Manager: PAPO MEASUREMENT RESULTS: Intervals: Rate: 71 WI: 168 QRSD: 82 QT: 368 QTc: 399 [place]: P: -13 WI: 168 QRS: 40 T: 64 INTERPRETIVE STATEMENTS: Normal sinus rhythm Possible Inferior infarct, age undetermined Abnormal ECG No previous ECG available for comparison Electronically Signed On 09-28-18 19:02:52 FRUIT BUYING GRADER by Janes Mcarthur
[2018-09-28] MEDS: CARVEDILOL 6.25 MG TAB PO SCH (20:34)
[2018-09-28] MEDS ORDERED: ATORVASTATIN 40 MG TAB PO SCH (21:00)
[2018-09-28] MEDS ORDERED: TRAZODONE 50 MG TABLET PO PRN (23:03)
[2018-09-29 01:09] LABS: CKMB Creatine Kinase MB < 1.0 ng/mL (0.3-3.6); Creatine Phosphokinase 57 U/L (39-308); Troponin I < 0.02 ng/mL (0.0-0.045)
[2018-09-29 04:43] LABS: Absolute Lymphocytes (CBC) 1.9 K/uL (0.7-4.9); Absolute Monocytes 0.7 K/uL (0.1-1.3); Basophils % 0.9 % (0-1.3); Eosinophils % 4.4 % (0-4.4); Hematocrit 43.5 % (39.6-49.0); Lymphocytes % 32.7 % (15.3-44.8); MPV 9.4 fL (7.6-11.3); Monocytes % 11.4 % (3.3-12.3); RBC Red Blood Cell Count 5.08 M/uL (4.33-5.43)
[2018-09-29 05:04] LABS: Magnesium 2.3 mg/dL (1.8-2.4); Potassium 3.8 mmol/L (3.5-5.1)
[2018-09-29] MEDS ORDERED: FUROSEMIDE 40 MG/4 ML VIAL IV SCH (09:00)
[2018-09-29] MEDS ORDERED: LISINOPRIL 10 MG TAB PO SCH (09:00)
[2018-09-29] MEDS ORDERED: ENOXAPARIN 40 MG/0.4 ML SQ SCH (09:00)
[2018-09-29] MEDS ORDERED: ASPIRIN EC 81 MG TAB PO SCH (09:00)
[2018-09-29] MEDS ORDERED: CLOPIDOGREL 75 MG TABLET PO SCH (09:00)
[2018-09-29] MEDS ORDERED: FUROSEMIDE 20 MG/ 2ML VIAL IV SCH (09:00)
--- NOTE | 2018-09-29 09:01 | RAD REPORT ---
EXAM DESCRIPTION: Madhu Mahajan And Jason (2 Views)09/29/2018 8:00 am CLINICAL HISTORY: Shortness of breath COMPARISON: September 28 FINDINGS: The lungs appear clear of acute infiltrate. The heart is borderline enlarged. Pacemaker l lj are in place. IMPRESSION: No acute abnormalities displayed
[2018-09-29] MEDS: CARVEDILOL 6.25 MG TAB PO SCH (09:23)
[2018-09-29] MEDS ORDERED: REGADENOSON 0.4 MG/5 ML SYR IV ONE (12:19)
--- NOTE | 2018-09-29 13:23 | RAD REPORT ---
EXAM DESCRIPTION: NM - Rest Stress Cardiac Imaging - 09/29/2018 1:18 pm CLINICAL HISTORY: Chest pain. COMPARISON: None. TECHNIQUE: The patient was administered approximately 10mCi of Tc 99m Sestamibi prior to resting SPE CT imaging of the heart. The patient was then administered approximately 30 mCi of Tc 99m Sestamibi f ollowing exercise or pharmacologic stress. Multiplanar SPECT images were reviewed. FINDINGS: Large area of diminished radiotracer uptake involves the inferior left ventricular myocar dium on rest and stress images. Left ventricular ejection fraction equals 45% IMPRESSION: Large fixed perfusion defect involving the inferior left ventricular myocardium consist ent with an infarct No evidence of stress-induced ischemia
--- NOTE | 2018-09-29 13:40 | TREADPHA ---
DX: CHEST PAIN Date of Study: 09/29/2018 Ht: 5 8 Wt: 257 lb 0 oz Consulting Physician: BOOKER MEDICATIONS: TYLENOL, ASPIRIN, LIPITOR, COREG, PLAVIX, LOVENOX, PRINIVIL, NITROSTAT HISTORY: 63 YEAR OLD MALE WITH COMPLAINTS OF CHEST PAIN. MEDICAL HISTORY OF HYPERTENSION, HIGH CHOLESTORL, CONGESTIVE HEART FAILURE, PACEMAKER AND CARDIAC STENTS X2. PHYSICIAL EXAMINATION: RESTING B.P.: 126/82 RESTING H.R.: 62 RESTING EKG: INFERIOR MYOCARDIAL INFARCTION, OTHERWISE NORMAL. PROTOCOL: LEXISCAN EXERCISE TIME: 3:30 B.P. AT PEAK STRESS: 120/59 IMPRESSION: LEXISCAN INJECTED. CARDIOLITE INJECTED PER PROTOCOL. SEE NUCLEAR MEDICINE REPORT. NO SUPRAVENTRICULAR OR VENTRICULAR TACHYCARDIA NOTED. ONE PREMATURE VENTRICULAR COMPLEX DURING TEST. OCCASIONAL PREMATURE VENTRICULAR COMPLEXES POST STRESS. CHEST PRESSURE 2/10 DURING TEST. NON DIAGNOSTIC EKG WITH LEXISCAN STRESS TEST.
--- NOTE | 2018-09-29 13:51 | ECHO ---
HEIGHT: 5 ft 8 in WEIGHT: 257 lb 0 oz DATE OF STUDY: 09/29/[address]: Rj Sen MD 2-DIMENSIONAL: YES M.MODE: YES DOPPLER: YES COLOR FLOW: YES TDS: PORTABLE: DEFINITY: BUBBLE STUDY: DIAGNOSIS: PERICARDITIS, CONGETIVE HEART FAILURE CARDIAC HISTORY: CATHERIZATION: YES SURGERY: NO PROSTHETIC VALVE: NO PACEMAKER: YES MEASUREMENTS (cm) DIASTOLIC (NORMALS) SYSTOLIC (NORMALS) IVSd 1.2 (0.6-1.2) LA Diam 4.3 (1.9-4.0) LVEF 55% LVIDd 5.4 (3.5-5.7) LVIDs 3.9 (2.0-3.5) %FS 29% LVPWd 1.3 (0.6-1.2) Ao Diam 2.8 (2.0-3.7) 2 DIMENSIONAL ASSESSMENT: RIGHT ATRIUM: NORMAL LEFT ATRIUM: DILATED RIGHT VENTRICLE: NORMAL LEFT VENTRICLE: LEFT VENTRICULAR HYPERTROPHY TRICUSPID VALVE: NORMAL MITRAL VALVE: NORMAL PULMONIC VALVE: NORMAL AORTIC VALVE: MILD SCLEROSIS PERICARDIAL EFFUSION: NONE AORTIC ROOT: NORMAL LEFT VENTRICULAR WALL MOTION: NORMAL DOPPLER/COLOR FLOW: MILD MITRAL REGURGITATION. NO AORTIC STENOSIS OR AORTIC REGURGITATION. COMMENTS: NORMAL LEFT VENTRICULAR EJECTION FRACTION. LEFT VENTRICULAR HYEPRTROPHY. AORTIC SCLEROSIS WITH NO AORTIC STENOSSI OR AORTIC REGURGITAITON. PACEMAKER IN RIGHT VENTRICLE. TECHNOLOGIST: RUSTAM MCWILLIAMS
--- NOTE | 2018-09-29 14:55 | P.DS ---
Admission Date: 09/28/18 Discharge Date: 09/29/18 Primary Care Provider: [place], [place] (Cardiology-Dr. Ness) Disposition: ROUTINE DISCHARGE Discharge Condition: GOOD Reason for Admission: Chest pain, shortness of breath Consultations: Cardiology-Dr. Sen Procedures: ECHO: EF 55% LEFT VENTRICULAR WALL MOTION: NORMAL DOPPLER/COLOR FLOW: MILD MITRAL REGURGITATION. NO AORTIC STENOSIS OR AORTIC REGURGITATION. COMMENTS: NORMAL LEFT VENTRICULAR EJECTION FRACTION. LEFT VENTRICULAR HYEPRTROPHY. AORTIC SCLEROSIS WITH NO AORTIC STENOSIS OR AORTIC REGURGITAITON. PACEMAKER IN RIGHT VENTRICLE. Cardiac Stress Test: COMPARISON: None. TECHNIQUE: The patient was administered approximately 10mCi of Tc 99m Sestamibi prior to resting SPECT imaging of the heart. The patient was then administered approximately 30 mCi of Tc 99m Sestamibi following exercise or pharmacologic stress. Multiplanar SPECT images were reviewed. FINDINGS: Large area of diminished radiotracer uptake involves the inferior left ventricular myocardium on rest and stress images. Left ventricular ejection fraction equals 45% IMPRESSION: Large fixed perfusion defect involving the inferior left ventricular myocardium consistent with an infarct No evidence of stress-induced ischemia CXR: COMPARISON: No comparisons FINDINGS: Portable technique limits examination quality. Mild interstitial pulmonary edema is seen. The heart is moderately enlarged in size with a dual lead pacer device present. No displaced fractures. IMPRESSION: Mild CHF versus volume overload pattern. Follow up CXR: COMPARISON: September 28 FINDINGS: The lungs appear clear of acute infiltrate. The heart is borderline enlarged. Pacemaker leads are in place. IMPRESSION: No acute abnormalities displayed Medical problem list: Chest pain with shortness of breath secondary to acute on chronic diastolic CHF CAD with prior cardiac stents Hypertension Hyperlipidemia History of pacemaker placement Obesity, BMI 39.1 Alcohol use Suspect underlying obstructive sleep apnea Brief History of Present Illness: 63-year-old male presented to the emergency room with chest pain and shortness of breath. Patient reports increasing chest pain to the center region. It radiates to the left side. He reports some nausea but no vomiting. It is associated with some shortness of breath. Mild edema to the lower extremities noted. Patient last saw Cardiology in the [place], [place] in August. He had a echocardiogram and stress test at that time. He reports both within normal range. Patient continued to have chest pain. Patient came in for further evaluation. In the ER a EKG showed no significant ST changes. Troponin less than 0.02. White count 6.2, hemoglobin 16. Sodium 139, potassium 3.9, creatinine within normal range. Glucose 148. BMP at 209. Chest x-ray showed mild CHF. Patient admitted for treatment. I saw the patient the ER, patient reported some improvement with IV Lasix given in the emergency room. Patient reports he is not on a fluid restriction. Patient reports history of pacemaker placement, CHF, CAD, hypertension and hyperlipidemia. Patient reports history of cardiac stents placed about 2 years ago. Hospital Course: Patient presented with chest pain and shortness of breath. Patient evaluated by Cardiology. Cardiology recommended echocardiogram and cardiac stress test. Echo shows normal ejection fraction. Cardiac stress test showed no stress- induced ischemia. Patient responded well to diuretic therapy. Patient likely had acute on chronic systolic CHF. Patient without any significant shortness of breath or chest pain. At discharge patient will continue with a 1500 cc per day fluid restriction and low-salt diet. At discharge Lasix has been increased to 40 mg 1 pill twice daily. Patient will continue with potassium supplementation. Recommend to recheck lab-BMP in 1 week to monitor his progress. Recommend to monitor his weight daily. If his weight increases by more than 5 lb, he is to contact his PCP or regional planner for further recommendation. Further adjustment in medication-diuretic therapy can be done by cardiology. Recommend to follow up with cardiology in 1 week to monitor his progress. Patient with history of CAD, history of pacemaker placement and cardiac stents. Cardiac stress test showed no stress-induced ischemia. At discharge he will continue with his medications of aspirin 81 mg daily and Plavix 75 mg daily. Recommend to follow up with cardiology in 1 week to monitor his progress. Further monitoring of his pacemaker can be done by cardiology. Patient with hypertension. This remained stable. At discharge he will continue with carvedilol 6.25 mg 1 pill twice daily and lisinopril 10 mg daily. Recommendation is to maintain blood pressures less 150/80. Further adjustment can be done by his PCP. Patient with obesity, BMI 39. Lifestyle modification education provided. Patient likely with underlying obstructive sleep apnea. Recommendation is to follow up with pulmonology for outpatient sleep study to further evaluate and treat. Alcohol cessation addressed in detail. Vital Signs/Physical Exam: Temp Pulse Resp BP Pulse Ox 97.0 F 67 20 120/72 94 09/29/18 08:00 09/29/18 08:00 09/29/18 08:00 09/29/18 08:00 09/29/18 08:00 General: Alert, In no apparent distress, Oriented x3, Cooperative HEENT: Atraumatic Neck: Supple Respiratory: Clear to auscultation bilaterally, Normal air movement Cardiovascular: Normal pulses, Regular rate/rhythm Gastrointestinal: Normal bowel sounds, Soft and benign, Non-distended, No tenderness, No masses, No rebound, No guarding Musculoskeletal: No erythema, No tenderness, No warmth Integumentary: No tenderness/swelling, No erythema, No warmth, No cyanosis Neurological: Normal speech, Normal strength at 5/5 x4 extr, Normal tone, Normal affect Laboratory Data at Discharge: WBC 5.9 K/uL (4.3-10.9) 09/29/18 04:14 Hgb 14.6 g/dL (13.6-17.9) 09/29/18 04:14 Hct 43.5 % (39.6-49.0) 09/29/18 04:14 Plt Count 171 K/uL (152-406) D 09/29/18 04:14 PT 12.7 SECONDS (9.5-12.5) H 09/28/18 13:50 INR 1.08 09/28/18 13:50 Sodium 138 mmol/L (136-145) 09/29/18 04:14 Potassium 3.8 mmol/L (3.5-5.1) 09/29/18 04:14 BUN 19 mg/dL (7-18) H 09/29/18 04:14 Creatinine 0.88 mg/dL (0.55-1.3) 09/29/18 04:14 Glucose 115 mg/dL (74-106) H 09/29/18 04:14 Magnesium 2.3 mg/dL (1.8-2.4) 09/29/18 04:14 Total Bilirubin 1.1 mg/dL (0.2-1.0) H 09/28/18 13:50 AST 32 U/L (15-37) 09/28/18 13:50 ALT 45 U/L (12-78) 09/28/18 13:50 Alkaline Phosphatase 108 U/L (45-117) 09/28/18 13:50 Troponin I < 0.02 ng/mL (0.0-0.045) 09/29/18 00:28 Triglycerides 235 mg/dL (<150) H 09/29/18 04:14 Cholesterol 124 mg/dL (<200) 09/29/18 04:14 HDL Cholesterol 30 mg/dL (40-60) L 09/29/18 04:14 Cholesterol/HDL Ratio 4.13 09/29/18 04:14 Lipase 170 U/L (73-393) 09/28/18 13:50 Home Medications: Aspirin [Adult Aspirin] 81 mg PO BEDTIME 09/28/18 Atorvastatin Calcium [Lipitor] 40 mg PO BEDTIME 09/28/18 Carvedilol 6.25 mg PO BID 09/28/18 Clopidogrel Bisulfate [Plavix] 75 mg PO DAILY 09/28/18 Lisinopril 10 mg PO DAILY 09/28/18 Potassium Chloride 10 meq PO DAILY 09/28/18 Furosemide [Lasix] 40 mg PO BID #60 tablet 09/29/18 New Medications: Furosemide [Lasix] 40 mg PO BID #60 tablet Patient Discharge Instructions: 1. The patient will need to establish care with a PCP to continue his care and follow up. 2. Patient presented with chest pain and shortness of breath. Patient evaluated by Cardiology. Cardiology recommended echocardiogram and cardiac stress test. Echo shows normal ejection fraction. Cardiac stress test showed no stress-induced ischemia. Patient responded well to diuretic therapy. Patient likely had acute on chronic systolic CHF. Patient without any significant shortness of breath or chest pain. At discharge patient will continue with a 1500 cc per day fluid restriction and low-salt diet. At discharge Lasix has been increased to 40 mg 1 pill twice daily. Patient will continue with potassium supplementation. Recommend to recheck lab-BMP in 1 week to monitor his progress. Recommend to monitor his weight daily. If his weight increases by more than 5 lb, he is to contact his PCP or regional planner for further recommendation. Further adjustment in medication-diuretic therapy can be done by cardiology. Recommend to follow up with cardiology in 1 week to monitor his progress. 3. Patient with history of CAD, history of pacemaker placement and cardiac stents. Cardiac stress test showed no stress-induced ischemia. At discharge he will continue with his medications of aspirin 81 mg daily and Plavix 75 mg daily. Recommend to follow up with cardiology in 1 week to monitor his progress. Further monitoring of his pacemaker can be done by cardiology. 4. Patient with hypertension. This remained stable. At discharge he will continue with carvedilol 6.25 mg 1 pill twice daily and lisinopril 10 mg daily. Recommendation is to maintain blood pressures less 150/ 80. Further adjustment can be done by his PCP. 5. Patient with obesity, BMI 39. Lifestyle modification education provided. 6. Patient likely with underlying obstructive sleep apnea. Recommendation is to follow up with pulmonology for outpatient sleep study to further evaluate and treat. 7. Alcohol cessation education will be provided. Diet: AHA Activity: Ad huy Time spent managing pt's care (in minutes): 55
--- NOTE | 2018-09-29 15:50 | CON ---
History Of Present Illness: Mr. García came to the hospital with chest pain. His pain is there fo r a few seconds at a time, usually when he coughs. I had him to take a deep breath. It reproduced t he pain. It is in the upper left portion of his chest. It has been there for several days before co errol in. He has a history of heart disease. In 2007, he had a myocardial infarction treated with st ents, he ended up getting congestive heart failure and has a defibrillator. He has normally been und er the care of some physicians either in the [place] or somewhere in [facility]. About 3 years ago, a cardiac cath was done. No further interventions were done. About 3 months ago, a stress test and echocardiogram were done, and he was told that things looked good for him. We do not have any o f those old records. Medications: Outpatient medications have been Lipitor 40, potassium chloride, Coreg 6.25 b.i.d., Las ix 40, Plavix 75, lisinopril 10, aspirin 81. Allergies: HE HAS NO ALLERGIES. Social History: He uses no tobacco. Rare alcohol. No illegal drugs. Physical Examination: General: 5 feet 8 inches, 257 pounds, obese. Alert, oriented, pleasant. He is not in distress. Lungs: Clear. Heart: Within normal limits. When he takes a breath, he usually coughs and then winces in pain and holds the area, upper left part of his chest close to the subclavian region. Abdomen: Soft. No organomegaly. Extremities: Palpable distal pulses. Laboratory Data: Reveals a normal complete blood count. Creatinine 0.88. Blood sugars 148 and 115. Troponins are all less than 0.02. His total cholesterol is 124, triglycerides 235. Impression: We have a patient with coronary heart disease, left ventricular dysfunction, heart failu re defibrillator, who has a pleuritic-type chest pain. I will give him colchicine for now, and I fabian l recommend we do a pharmacologic nuclear stress test and echo and see what we learn. I suspect he h as nonspecific pleurisy or pericarditis. I do not hear a friction rub, but both of those are still a possibility. It does not sound anything like a pulmonary embolus. I do not think we have to do a C AT scan if we have other tests that are looking okay. We will see if colchicine relieves his pain. We can entertain the thought that it could have been a pulmonary embolus, but I am not very worried t hat is the case. AKIKO Voice ID: [id number] Report ID: [id number]
[2018-09-29] MEDS ORDERED: COLCHICINE 0.6 MG TAB PO SCH (21:00)
--- NOTE | 2018-09-30 07:05 | EKG ---
Test Date: 2018-09-29 Test Time: 00:03:55 [employer] Supervisor: RT Gupta MEASUREMENT RESULTS: Intervals: Rate: 70 NE: 166 QRSD: 78 QT: 386 QTc: 416 [place]: P: 23 NE: 166 QRS: 13 T: -2 INTERPRETIVE STATEMENTS: Normal sinus rhythm Inferior infarct, age undetermined Cannot rule out Anterior infarct, age undetermined Abnormal ECG Compared to ECG 09/28/2018 13:49:39 No significant changes Electronically Signed On 09-30-18 07:04:59 TAPER OPERATOR by Rj Sen
== END 2018-09-29 17:20 | disposition home or self-care (01) ==
LOC: ER 13:35 → ERHOLD 15:06 → 4TH 16:26
PROVIDERS: ADMIT Family Medicine; ATTEND Family Medicine
DX: I11.0 Hypertensive heart disease with heart failure (principal); I50.33 Acute on chronic diastolic (congestive) heart failure; I25.10 Atherosclerotic heart disease of native coronary artery without angina pectoris; E78.5 Hyperlipidemia, unspecified; E66.9 Obesity, unspecified; Z68.39 Body mass index [BMI] 39.0-39.9, adult; Z72.89 Other problems related to lifestyle; Z95.5 Presence of coronary angioplasty implant and graft; Z95.0 Presence of cardiac pacemaker
CPT/HCPCS: 36415; 71045; 71046; 78452; 80048 ×2; 80061; 80076; 81003 ×2; 82550 ×2; 82553 ×2; 83690; 83735 ×2; 83880; 84439; 84443; 84484 ×3; 85025 ×2; 85610; 87086; 87088; 93005 ×2; 93017; 93306; 96372; 96374; 99285; A9500; G0378 ×2; J1650 ×2; J1940 ×2; J2785

== ENCOUNTER 2019-08-28 08:50 | Emergency (ER) | payer OTHER ==
--- OUTSIDE RECORDS SUMMARY | 2019-08-28 08:53 | XMS REPORT ---
:1955 [facility] Address [address] [place] [address] Care Team Providers Name Role Phone HIRAM DURHAM Unavailable Unavailable Problems This patient has no known problems. Allergies, Adverse Reactions, Alerts This patient has no known allergies or adverse reactions. Medications This patient has no known medications. Results Test Description Test Time Test Comments Text Results Atomic Results Result Comments POCT-GLUCOSE METER 2016-10-22 17:02:00 Test Item Value Reference Range Comments POC-GLUCOSE METER (BEAKER) (test 83 mg/dL 70-110 TESTED AT [address] nhnl=2017) [facility] [id number] COMPREHENSIVE METABOLIC [id number] 05:27:00 Test Item Value Reference Range Comments TOTAL PROTEIN (BEAKER) 6.6 gm/dL 6.0-8.5 (test quvv=078) ALBUMIN (BEAKER) (test 3.7 g/dL 3.5-5.0 usni=5274) ALKALINE PHOSPHATASE 68 U/L 30-115 (BEAKER) (test qbgj=587) BILIRUBIN TOTAL (BEAKER) 0.6 mg/dL 0.1-1.3 (test elzo=220) SODIUM (BEAKER) (test 139 meq/L 135-148 fmgb=326) POTASSIUM (BEAKER) (test 3.9 meq/L 3.5-5.5 czdi=098) CHLORIDE (BEAKER) (test 109 meq/L 98-106 qiup=693) CO2 (BEAKER) (test 21 meq/L 20-31 yqha=387) BLOOD UREA NITROGEN 18 mg/dL 10-26 (BEAKER) (test mdww=371) CREATININE (BEAKER) (test 0.92 mg/dL 0.50-1.20 zcsb=829) GLUCOSE RANDOM (BEAKER) 122 mg/dL 70-110 (test twlx=785) CALCIUM (BEAKER) (test 8.9 mg/dL 8.5-10.5 kxjw=287) AST (SGOT) (BEAKER) (test 24 U/L 5-40 hezi=153) ALT (SGPT) (BEAKER) (test 22 U/L 6-50 kmaq=897) EGFR (BEAKER) (test 84 mL/min/1.73 sq m ESTIMATED GFR IS NOT tajc=1964) ACCURATE CREATININE CLEARANCE IN PREDICTING GLOMERULAR FILTRATION RATE. ESTIMATED GFR IS NOT APPLICABLE FOR DIALYSIS PATIENTS. CBC W/PLT COUNT & AUTO [id number] 05:00:00 Test Item Value Reference Range Comments WHITE BLOOD CELL COUNT (BEAKER) (test mzgs=873) 5.7 K/ L 4.0-10.0 RED BLOOD CELL COUNT (BEAKER) (test eulr=926) 5.10 M/ L 4.20-5.80 HEMOGLOBIN (BEAKER) (test gczl=319) 15.0 GM/DL 13.0-16.8 HEMATOCRIT (BEAKER) (test yybb=784) 44.3 % 40.0-50.0 MEAN CORPUSCULAR VOLUME (BEAKER) (test eolc=360) 86.9 fL 82.0-98.0 MEAN CORPUSCULAR HEMOGLOBIN (BEAKER) (test 29.4 pg 27.0-33.0 xhiw=802) MEAN CORPUSCULAR HEMOGLOBIN CONC (BEAKER) (test 33.9 GM/DL 32.0-36.0 xuyi=237) RED CELL DISTRIBUTION WIDTH (BEAKER) (test 14.7 % 12.0-15.0 dlza=115) PLATELET COUNT (BEAKER) (test bkik=485) 167 K/CU MM 150-430 MEAN PLATELET VOLUME (BEAKER) (test hkxl=827) 9.7 fL 6.5-10.5 NUCLEATED RED BLOOD CELLS (BEAKER) (test 0 /100 WBC 0-0 sgwf=128) NEUTROPHILS RELATIVE PERCENT (BEAKER) (test 68 % vpec=232) LYMPHOCYTES RELATIVE PERCENT (BEAKER) (test 20 % dfiw=409) MONOCYTES RELATIVE PERCENT (BEAKER) (test 9 % wreo=618) EOSINOPHILS RELATIVE PERCENT (BEAKER) (test 2 % mwmt=968) BASOPHILS RELATIVE PERCENT (BEAKER) (test 1 % hysc=782) NEUTROPHILS ABSOLUTE COUNT (BEAKER) (test 3.90 K/ L 1.80-8.00 sesq=907) LYMPHOCYTES ABSOLUTE COUNT (BEAKER) (test 1.10 K/ L 1.48-4.50 ykek=801) MONOCYTES ABSOLUTE COUNT (BEAKER) (test 0.50 K/ L 0.00-1.30 utrm=996) EOSINOPHILS ABSOLUTE COUNT (BEAKER) (test 0.10 K/ L 0.00-0.50 vadu=781) BASOPHILS ABSOLUTE COUNT (BEAKER) (test 0.00 K/ L 0.00-0.20 bgdv=832) TSH/FREE T4 IF [id number] 05:52:00 Test Item Value Reference Range Comments THYROID STIMULATING HORMONE (BEAKER) (test 2.19 uIU/mL 0.35-5.50 xlav=373) CREATINE KINASE (CK), TOTAL AND [id number] 05:39:00 Test Item Value Reference Range Comments CREATINE KINASE TOTAL (BEAKER) (test dazn=555) 53 U/L 30-300 CREATINE KINASE-MB (BEAKER) (test yvoj=770) 1.1 ng/mL 0.0-4.9 CREATINE KINASE-MB INDEX (BEAKER) (test wssj=481) 2.1 % CK-MB Reference Range:<5 Normal5-10 Borderline>10 AbnormalLIPID [id number] 05:34:00 Test Item Value Reference Range Comments TRIGLYCERIDES (BEAKER) (test hlpv=090) 167 mg/dL CHOLESTEROL (BEAKER) (test feho=348) 142 mg/dL HDL CHOLESTEROL (BEAKER) (test jfvq=643) 28 mg/dL LDL CHOLESTEROL CALCULATED (BEAKER) (test 81 mg/dL hzmc=157) Triglyceride Reference Range: Low Risk <150 Borderline 150- 199 High Risk 200-499 Very High Risk >=500Cholesterol Reference Range: Low Risk <200 Borderline 200-239 High Risk > 240HDL Cholesterol Reference Range: Low Risk >=60 High Risk <40LDL Cholesterol Reference Range: Optimal <100 Near Optimal 100-129 Borderline 130-159 High 160-189 Very High >=190COMPREHENSIVE METABOLIC [id number] 05:34:00 Test Item Value Reference Range Comments TOTAL PROTEIN (BEAKER) 7.0 gm/dL 6.0-8.5 (test uaxx=178) ALBUMIN (BEAKER) (test 4.0 g/dL 3.5-5.0 eqbn=5932) ALKALINE PHOSPHATASE 64 U/L 30-115 (BEAKER) (test rplg=435) BILIRUBIN TOTAL (BEAKER) 0.8 mg/dL 0.1-1.3 (test cala=454) SODIUM (BEAKER) (test 138 meq/L 135-148 wgxr=099) POTASSIUM (BEAKER) (test 3.9 meq/L 3.5-5.5 jojp=125) CHLORIDE (BEAKER) (test 107 meq/L 98-106 vkdc=397) CO2 (BEAKER) (test 22 meq/L 20-31 dcyn=107) BLOOD UREA NITROGEN 17 mg/dL 10-26 (BEAKER) (test zfrq=182) CREATININE (BEAKER) (test 0.91 mg/dL 0.50-1.20 tlge=013) GLUCOSE RANDOM (BEAKER) 103 mg/dL 70-110 (test uskm=774) CALCIUM (BEAKER) (test 9.3 mg/dL 8.5-10.5 lvtm=790) AST (SGOT) (BEAKER) (test 24 U/L 5-40 rjbc=917) ALT (SGPT) (BEAKER) (test 22 U/L 6-50 ywuv=021) EGFR (BEAKER) (test 85 mL/min/1.73 sq m ESTIMATED GFR IS NOT pezl=2707) ACCURATE CREATININE CLEARANCE IN PREDICTING GLOMERULAR FILTRATION RATE. ESTIMATED GFR IS NOT APPLICABLE FOR DIALYSIS PATIENTS. CBC W/PLT COUNT & AUTO [id number] 05:09:00 Test Item Value Reference Range Comments WHITE BLOOD CELL COUNT (BEAKER) (test pigb=657) 5.7 K/ L 4.0-10.0 RED BLOOD CELL COUNT (BEAKER) (test wxoa=255) 5.27 M/ L 4.20-5.80 HEMOGLOBIN (BEAKER) (test eupb=412) 15.3 GM/DL 13.0-16.8 HEMATOCRIT (BEAKER) (test cugt=685) 46.3 % 40.0-50.0 MEAN CORPUSCULAR VOLUME (BEAKER) (test ewmc=383) 88.0 fL 82.0-98.0 MEAN CORPUSCULAR HEMOGLOBIN (BEAKER) (test 29.1 pg 27.0-33.0 jmkq=573) MEAN CORPUSCULAR HEMOGLOBIN CONC (BEAKER) (test 33.1 GM/DL 32.0-36.0 yfpj=511) RED CELL DISTRIBUTION WIDTH (BEAKER) (test 14.8 % 12.0-15.0 huxw=309) PLATELET COUNT (BEAKER) (test oatt=264) 171 K/CU MM 150-430 MEAN PLATELET VOLUME (BEAKER) (test jkzm=099) 9.6 fL 6.5-10.5 NUCLEATED RED BLOOD CELLS (BEAKER) (test 0 /100 WBC 0-0 acjm=635) NEUTROPHILS RELATIVE PERCENT (BEAKER) (test 62 % isdn=327) LYMPHOCYTES RELATIVE PERCENT (BEAKER) (test 24 % oazu=494) MONOCYTES RELATIVE PERCENT (BEAKER) (test 10 % asil=662) EOSINOPHILS RELATIVE PERCENT (BEAKER) (test 3 % zpwu=787) BASOPHILS RELATIVE PERCENT (BEAKER) (test 1 % bedp=307) NEUTROPHILS ABSOLUTE COUNT (BEAKER) (test 3.50 K/ L 1.80-8.00 uyzn=005) LYMPHOCYTES ABSOLUTE COUNT (BEAKER) (test 1.40 K/ L 1.48-4.50 jxrd=080) MONOCYTES ABSOLUTE COUNT (BEAKER) (test 0.60 K/ L 0.00-1.30 wotx=167) EOSINOPHILS ABSOLUTE COUNT (BEAKER) (test 0.20 K/ L 0.00-0.50 qwsm=524) BASOPHILS ABSOLUTE COUNT (BEAKER) (test 0.10 K/ L 0.00-0.20 arce=618) CREATINE KINASE (CK), TOTAL AND [id number] 13:10:00 Test Item Value Reference Range Comments CREATINE KINASE TOTAL (BEAKER) (test rbnf=100) 56 U/L 30-300 CREATINE KINASE-MB (BEAKER) (test pexy=008) 1.1 ng/mL 0.0-4.9 CREATINE KINASE-MB INDEX (BEAKER) (test ssfm=272) 2.0 % CK-MB Reference Range:<5 Normal5-10 Borderline>10 AbnormalTROPONIN [id number] 13:10:00 Test Item Value Reference Range Comments TROPONIN I (BEAKER) (test xpks=020) 0.01 ng/mL 0.00-0.15 Troponin I (TnI) levels [...] and persistent tachyarrhythmia.CREATINE KINASE (CK), TOTAL AND [id number] 05:13:00 Test Item Value Reference Range Comments CREATINE KINASE TOTAL (BEAKER) (test lwgf=745) 51 U/L 30-300 CREATINE KINASE-MB (BEAKER) (test hwun=468) 0.9 ng/mL 0.0-4.9 CREATINE KINASE-MB INDEX (BEAKER) (test zndd=900) 1.8 % CK-MB Reference Range:<5 Normal5-10 Borderline>10 AbnormalTROPONIN [id number] 05:13:00 Test Item Value Reference Range Comments TROPONIN I (BEAKER) (test kjip=033) 0.01 ng/mL 0.00-0.15 Troponin I (TnI) levels [...] and persistent tachyarrhythmia.CREATINE KINASE (CK), TOTAL AND [id number] 20:46:00 Test Item Value Reference Range Comments CREATINE KINASE TOTAL (BEAKER) (test ocla=018) 64 U/L 30-300 CREATINE KINASE-MB (BEAKER) (test vnrc=779) 1.0 ng/mL 0.0-4.9 CREATINE KINASE-MB INDEX (BEAKER) (test onta=441) 1.6 % CK-MB Reference Range:<5 Normal5-10 Borderline>10 AbnormalTROPONIN [id number] 20:46:00 Test Item Value Reference Range Comments TROPONIN I (BEAKER) (test ksez=444) < ng/mL 0.00-0.15 Troponin I (TnI) levels [...] Range Comments B-TYPE NATRIURETIC PEPTIDE (BEAKER) (test juej=067) 19 pg/mL 0-100 [id number] 20:35:00 Test Item Value Reference Range Comments LIPASE (BEAKER) (test cytd=413) 22 U/L 8-78 COMPREHENSIVE METABOLIC [id number] 20:35:00 Test Item Value Reference Range Comments TOTAL PROTEIN (BEAKER) 7.5 gm/dL 6.0-8.5 Specimen slightly (test olly=832) hemolyzed ALBUMIN (BEAKER) (test 4.2 g/dL 3.5-5.0 Specimen slightly hhzb=5677) hemolyzed ALKALINE PHOSPHATASE 85 U/L 30-115 (BEAKER) (test dgun=809) BILIRUBIN TOTAL (BEAKER) 0.8 mg/dL 0.1-1.3 Specimen slightly (test wmgn=176) hemolyzed SODIUM (BEAKER) (test 135 meq/L 135-148 fcnr=513) POTASSIUM (BEAKER) (test 4.4 meq/L 3.5-5.5 Specimen slightly hdwf=191) hemolyzed CHLORIDE (BEAKER) (test 104 meq/L 98-106 zbrq=753) CO2 (BEAKER) (test 20 meq/L 20-31 hhqp=220) BLOOD UREA NITROGEN 21 mg/dL 10-26 (BEAKER) (test rzhs=241) CREATININE (BEAKER) (test 0.91 mg/dL 0.50-1.20 Specimen slightly xntm=392) hemolyzed GLUCOSE RANDOM (BEAKER) 89 mg/dL 70-110 (test ijqu=019) CALCIUM (BEAKER) (test 9.7 mg/dL 8.5-10.5 nddi=909) AST (SGOT) (BEAKER) (test 33 U/L 5-40 Specimen slightly xozz=455) hemolyzed ALT (SGPT) (BEAKER) (test 25 U/L 6-50 Specimen slightly rqmc=227) hemolyzed EGFR (BEAKER) (test 85 mL/min/1.73 sq m ESTIMATED GFR IS NOT sppk=3391) ACCURATE CREATININE CLEARANCE IN PREDICTING GLOMERULAR FILTRATION RATE. ESTIMATED GFR IS NOT APPLICABLE FOR DIALYSIS PATIENTS. CBC W/PLT COUNT & AUTO [id number] 20:08:00 Test Item Value Reference Range Comments WHITE BLOOD CELL COUNT (BEAKER) (test opxd=207) 5.7 K/ L 4.0-10.0 RED BLOOD CELL COUNT (BEAKER) (test wvgm=927) 5.43 M/ L 4.20-5.80 HEMOGLOBIN (BEAKER) (test eubx=481) 16.1 GM/DL 13.0-16.8 HEMATOCRIT (BEAKER) (test ekwv=378) 47.3 % 40.0-50.0 MEAN CORPUSCULAR VOLUME (BEAKER) (test xtwu=150) 87.2 fL 82.0-98.0 MEAN CORPUSCULAR HEMOGLOBIN (BEAKER) (test 29.6 pg 27.0-33.0 pyyo=387) MEAN CORPUSCULAR HEMOGLOBIN CONC (BEAKER) (test 34.0 GM/DL 32.0-36.0 xlda=880) RED CELL DISTRIBUTION WIDTH (BEAKER) (test 14.6 % 12.0-15.0 fbzc=690) PLATELET COUNT (BEAKER) (test dvtg=137) 138 K/CU MM 150-430 MEAN PLATELET VOLUME (BEAKER) (test xozl=518) 9.7 fL 6.5-10.5 NUCLEATED RED BLOOD CELLS (BEAKER) (test 0 /100 WBC 0-0 svry=584) NEUTROPHILS RELATIVE PERCENT (BEAKER) (test 56 % reao=730) LYMPHOCYTES RELATIVE PERCENT (BEAKER) (test 28 % shbd=914) MONOCYTES RELATIVE PERCENT (BEAKER) (test 12 % wtgt=008) EOSINOPHILS RELATIVE PERCENT (BEAKER) (test 4 % trrk=190) BASOPHILS RELATIVE PERCENT (BEAKER) (test 1 % vwlz=234) NEUTROPHILS ABSOLUTE COUNT (BEAKER) (test 3.20 K/ L 1.80-8.00 hhaz=817) LYMPHOCYTES ABSOLUTE COUNT (BEAKER) (test 1.60 K/ L 1.48-4.50 mhot=690) MONOCYTES ABSOLUTE COUNT (BEAKER) (test 0.70 K/ L 0.00-1.30 xezl=116) EOSINOPHILS ABSOLUTE COUNT (BEAKER) (test 0.20 K/ L 0.00-0.50 bfzb=060) BASOPHILS ABSOLUTE COUNT (BEAKER) (test 0.00 K/ L 0.00-0.20 zkdf=309)
[2019-08-28 09:34] LABS: Urine Blood 3+ (NEG); Urine Glucose NEGATIVE (NEG); Urine Protein NEGATIVE (NEG); Urine Specific Gravity 1.025 (1.005-1.030); Urine pH 5.5 (5.0-7.0)
--- NOTE | 2019-08-28 10:30 | ER ---
Nurse's Notes [facility] Name: Prasad García Age: 64 yrs Sex: Male : 1955 Arrival Date: 08/28/2019 Time: 08:53 Bed 18 Private MD: Diagnosis: Hematuria, unspecified-painless Presentation: 08/28 09:04 Presenting complaint: Patient states: yesterday had blood in urine X 2 and again this iw morning, denies pain with urination or flank pain. Transition of care: patient was not received from another setting of care. Onset of symptoms was August 27, 2019. Risk Assessment: Do you want to hurt yourself or someone else? Patient reports no desire to harm self or others. Initial Sepsis Screen: Does the patient meet any 2 criteria? No. Patient's initial sepsis screen is negative. Does the patient have a suspected source of infection? No. Patient's initial sepsis screen is negative. Care prior to arrival: None. 09:04 Method Of Arrival: Ambulatory iw 09:04 Acuity: PADMA 3 iw Triage Assessment: 09:08 General: Appears in no apparent distress. comfortable, Behavior is cooperative, bp appropriate for age, anxious. Pain: Denies pain. EENT: No deficits noted. Neuro: No deficits noted. Cardiovascular: No deficits noted. Respiratory: No deficits noted. GI: No signs and/or symptoms were reported involving the gastrointestinal system. : Reports HEMATURIA. Derm: No deficits noted. Musculoskeletal: No deficits noted. Historical: - Allergies: 09:06 No Known Allergies; iw - Home Meds: 09:06 aspirin 81 mg Oral chew 1 tab once daily [Active]; atorvastatin 40 mg Oral tab 1 tab iw once daily [Active]; carvedilol 6.25 mg Oral tab 1 tab 2 times per day [Active]; clopidogrel 75 mg Oral tab 1 tab once daily [Active]; furosemide 40 mg Oral tab 1 tab once daily [Active]; lisinopril 10 mg Oral tab 1 tab once daily [Active]; Potassium Chloride Oral [Active]; - PMHx: 09:06 CHF; Migraines; Pacemaker; Myocardial infarction; iw - PSHx: 09: heart stents x 2; iw - Immunization history:: Adult Immunizations not up to date. - Social history:: Smoking status: Patient denies any tobacco usage or history of. Patient/guardian denies using alcohol, street drugs, The patient lives with family. - Ebola Screening: : Patient negative for fever greater than or equal to 101.5 degrees Fahrenheit, and additional compatible Ebola Virus Disease symptoms Patient denies exposure to infectious person Patient denies travel to an Ebola-affected area in the 21 days before illness onset No symptoms or risks identified at this time. - Family history:: not pertinent. Screenin:09 Abuse screen: Denies threats or abuse. Denies injuries from another. Nutritional bp screening: No deficits noted. Tuberculosis screening: No symptoms or risk factors identified. Fall Risk None identified. Assessment: 09:09 General: SEE TRIAGE NOTE. bp 10:43 Reassessment: PT D/C HOME AMBULATORY, DX WITH PAINLESS HEMATURIA. bp Vital Signs: 09:06 BP 118 / 52; Pulse 66; Resp 18 S; Temp 97.8; Pulse Ox 99% on R/A; Weight 117.84 kg; iw Height 5 ft. 8 in. (172.72 cm); 10:43 BP 121 / 65; Pulse 71; Resp 17; Temp 98; Pulse Ox 99% ; bp 09:06 Body Mass Index 39.50 (117.84 kg, 172.72 cm) ED Course: 08:53 Patient arrived in ED. rg4 09:05 Triage completed. iw 09:06 Arm band placed on. iw 09:08 Bassam Ramirez, RN is Primary Nurse. bp 09:08 Haja Dean MD is Attending Physician. ma2 09:09 Patient has correct armband on for positive identification. Bed in low position. Call bp light in reach. Side rails up X2. 10:43 No provider procedures requiring assistance completed. Patient did not have IV access bp during this emergency room visit. Administered Medications: No medications were administered Outcome: 10:29 Discharge ordered by . ma2 10:43 Discharged to home ambulatory. bp 10:43 Condition: stable 10:43 Discharge instructions given to patient, Instructed on discharge instructions, follow up and referral plans. Demonstrated understanding of instructions, follow-up care. 10:45 Patient left the ED. bp Signatures: Tori Joel RN RN Liliane Mccauley 4 Bassam Ramirez RN RN bp Haja Dean MD MD prYarelis
--- NOTE | 2019-08-28 10:30 | EDPHYS ---
Physician Documentation [facility] Name: Prasad García Age: 64 yrs Sex: Male : 1955 Arrival Date: 08/28/2019 Time: 08:53 Bed 18 Private MD: ED Physician Haja Dean HPI: 08/28 10:27 This 64 yrs old Male presents to ER via Ambulatory with complaints of Blood In ma2 Urine. 10:27 Onset: The symptoms/episode began/occurred gradually, 2 day(s) ago. Severity of ma2 symptoms: At their worst the symptoms were mild, in the emergency department the symptoms are unchanged. The patient has not experienced similar symptoms in the past. hx of CAD takes ASA no other blood thinners, here with painless hematuria . Historical: - Allergies: 09:06 No Known Allergies; iw - Home Meds: 09:06 aspirin 81 mg Oral chew 1 tab once daily [Active]; atorvastatin 40 mg Oral tab 1 tab iw once daily [Active]; carvedilol 6.25 mg Oral tab 1 tab 2 times per day [Active]; clopidogrel 75 mg Oral tab 1 tab once daily [Active]; furosemide 40 mg Oral tab 1 tab once daily [Active]; lisinopril 10 mg Oral tab 1 tab once daily [Active]; Potassium Chloride Oral [Active]; - PMHx: 09:06 CHF; Migraines; Pacemaker; Myocardial infarction; iw - PSHx: 09:06 heart stents x 2; iw - Immunization history:: Adult Immunizations not up to date. - Social history:: Smoking status: Patient denies any tobacco usage or history of. Patient/guardian denies using alcohol, street drugs, The patient lives with family. - Ebola Screening: : Patient negative for fever greater than or equal to 101.5 degrees Fahrenheit, and additional compatible Ebola Virus Disease symptoms Patient denies exposure to infectious person Patient denies travel to an Ebola-affected area in the 21 days before illness onset No symptoms or risks identified at this time. - Family history:: not pertinent. ROS: 10:27 Constitutional: Negative for fever, chills, and weight loss. ma2 10:27 All other systems are negative. Exam: 10:27 Constitutional: This is a well developed, well nourished patient who is awake, alert, ma2 and in no acute distress. Head/Face: Normocephalic, atraumatic. Eyes: Pupils equal round and reactive to light, extra-ocular motions intact. Lids and lashes normal. Conjunctiva and sclera are non-icteric and not injected. Cornea within normal limits. Periorbital areas with no swelling, redness, or edema. Abdomen/GI: Soft, non-tender, with normal bowel sounds. No distension or tympany. No guarding or rebound. No evidence of tenderness throughout. Skin: Warm, dry with normal turgor. Normal color with no rashes, no lesions, and no evidence of cellulitis. MS/ Extremity: Pulses equal, no cyanosis. Neurovascular intact. Full, normal range of motion. Neuro: Awake and alert, GCS 15, oriented to person, place, time, and situation. Cranial nerves II-XII grossly intact. Motor strength 5/5 in all extremities. Sensory grossly intact. Cerebellar exam normal. Normal gait. Vital Signs: 09:06 BP 118 / 52; Pulse 66; Resp 18 S; Temp 97.8; Pulse Ox 99% on R/A; Weight 117.84 kg; iw Height 5 ft. 8 in. (172.72 cm); 10:43 BP 121 / 65; Pulse 71; Resp 17; Temp 98; Pulse Ox 99% ; bp 09:06 Body Mass Index 39.50 (117.84 kg, 172.72 cm) iw MDM: 09:08 Patient medically screened. ma2 10:27 Differential diagnosis: nonspecific abdominal pain, UTI, prostatitis, urethritis. Data ma2 reviewed: vital signs, nurses notes. Counseling: I had a detailed discussion with the patient and/or guardian regarding: the historical points, exam findings, and any diagnostic results supporting the discharge/admit diagnosis, the presence of at least one elevated blood pressure reading (>120/80) during this emergency department visit, the need for outpatient follow up. ED course: painless hematuria, no uti today i explained he need pcp to do renal cancer rule out workup, and return to er for any new symptoms . 08/28 09:21 Order name: Urine Dipstick--Ancillary (enter results); Complete Time: 10:15 eb Administered Medications: No medications were administered Disposition: 08/28/19 10:29 Discharged to Home. Impression: Hematuria, unspecified - painless. - Condition is Stable. - Discharge Instructions: Hematuria, Adult. - Medication Reconciliation Form, Thank You Letter, Antibiotic Education, Prescription Opioid Use form. - Follow up: Private Physician; When: Tomorrow; Reason: Continuance of care. - Notes: see primarycare doctor or urologist or sensitized paper tester for further workup for painless hematuria Signatures: Dispatcher [employer] EDTori Cotto RN RN iw Peltier, Brian, RN RN bp Alzahri, Mohammad, MD MD ma2 Corrections: (The following items were deleted from the chart) 10:45 10:29 08/28/2019 10:29 Discharged to Home. Impression: Hematuria, unspecified - bp painless. Condition is Stable. Forms are Medication Reconciliation Form, Thank You Letter, Antibiotic Education, Prescription Opioid Use. Follow up: Private Physician; When: Tomorrow; Reason: Continuance of care. ma2
[2019-08-28 11:56] VITALS: O2SAT 99
[2019-08-28 11:57] VITALS: BP 121/65; TEMP 98
== END 2019-08-28 10:45 | disposition home or self-care (01) ==
LOC: ER 08:50
DX: R31.9 Hematuria, unspecified (principal); I25.2 Old myocardial infarction; I50.9 Heart failure, unspecified; Z95.0 Presence of cardiac pacemaker; Z95.5 Presence of coronary angioplasty implant and graft
CPT/HCPCS: 81003; 99281